=== PATIENT | female | born 1985 | race African-American/Black ===

== ENCOUNTER 2022-06-04 13:27 | Outpatient (CLI) | payer OTHER | END 2022-06-04 13:28 | disposition home or self-care (01) | LOC: CSHRAD 13:27 | PROVIDERS: ATTEND Student in an Organized Health Care Education/Training Program | DX: M54.50 Low back pain, unspecified (principal); M41.9 Scoliosis, unspecified; M47.816 Spondylosis without myelopathy or radiculopathy, lumbar region | CPT/HCPCS: 72100 ==